=== PATIENT | female | born 1950 | race American Indian/Alaskan Native ===

== ENCOUNTER 2017-03-09 13:40 | Outpatient (CLI) | payer MEDICARE ==
--- NOTE | 2017-03-11 14:28 | Vascular Lab Report ---
Left Lower Extremity Venous Duplex Study: Reason for Exam: Pain of the left lower extremity. Comments on the Right: A limited duplex study was done of the proximal veins of the right lower extremity. All veins visualized are freely compressible without evidence of internal echogenicity. Flow is spontaneous and phasic throughout. No evidence of acute or chronic thrombus is seen in any of the vessels visualized. Comments on the Left: All veins visualized are freely compressible without evidence of internal echogenicity. Flow is spontaneous and phasic throughout. No evidence of acute or chronic thrombus is seen in any of the vessels visualized. There are soft tissue change in the left knee area most compatible with an effusion or Elaine's cyst. Impression: No evidence of acute or chronic deep venous thrombosis in the left lower extremity.
== END 2017-03-09 13:41 | disposition home or self-care (01) ==
LOC: VAS 13:40
PROVIDERS: ATTEND Internal Medicine Hematology & Oncology
DX: M79.662 Pain in left lower leg (principal); M79.89 Other specified soft tissue disorders

== ENCOUNTER 2017-06-23 09:09 | Outpatient (CLI) | payer MEDICARE ==
[2017-06-23 10:55] LABS: Blood Urea Nitrogen 16 mg/dL (7-17)
[2017-06-23] MEDS ORDERED: FLUSH HEPARIN IV ONE (14:29)
--- NOTE | 2017-06-23 16:11 | Cat Scan Report ---
FINAL REPORT EXAM: CT ANGIO CHEST HISTORY: MALIGNANT NEOPLASM OF PANCREAS UNSPECIFIED TECHNIQUE: CTA of the chest was performed after the administration of intravenous contrast. Reconstructions were included in the coronal and sagittal planes. Rotating MIPS were included. PRIORS: CT of the chest from 10/11/2016. FINDINGS: Pulmonary arteries and thoracic aorta: The study is adequate for diagnostic purposes. No central or segmental pulmonary embolism. The thoracic aorta is normal in caliber. Unchanged atherosclerotic calculi in the thoracic aorta. A right chest port is present with the tip lying in the right atrium. Lungs and airways: No pleural effusion. The airways are patent. No bronchiectasis. The previously seen right upper lobe mass appears decreased in density is since the prior study. The mass measures approximately 5.5 x 3.4 centimeters, previously 5.8 x 4.9 centimeters. The other previously seen bilateral pulmonary nodules are grossly stable in size. There is a new left apical pulmonary nodule measuring 5 millimeters on series 2, image 20. New streaky and patchy opacities are seen in the left lung apex. No other new pulmonary nodules are seen. Mediastinum, heart, pericardium: No mediastinal lymphadenopathy. No cardiac chamber enlargement. No pericardial effusion. Unchanged coronary artery calculi. Thoracic inlet, chest wall, axilla: No chest wall masses. 4 millimeter hypoattenuating left thyroid nodule is again seen. No axillary lymphadenopathy. Upper abdomen: Extensive hypoattenuating lesions throughout the liver have decreased in number since the prior study. Seven remaining lesions are seen. Previously there were innumerable lesions scattered throughout the liver. The largest lesion near the hepatic dome measures 1.5 centimeters, previously 2.0 centimeters. There is new intrahepatic biliary ductal dilation. Calcified splenic granulomas are seen. Severe dilation of the pancreatic duct is again seen. Hypoattenuating lesion in the pancreatic body is similar in appearance and size measuring approximately 2.6 centimeters (remeasured on the prior). Possible 2nd pancreatic tail lesion is measuring 2 centimeters. Bones: Degenerative changes are seen throughout the spine. IMPRESSION: 1. No central or segmental pulmonary embolism. 2. Decreased size and density of the right upper lobe mass. The additional bilateral pulmonary nodules are unchanged in size. There is one new 5 millimeter left upper lobe pulmonary nodule. 3. New streaky and patchy opacities in the left lung apex may be related to pneumonia versus post radiation change. 4. Decreased size and number of the hepatic metastases. 5. New intrahepatic biliary ductal dilation. 6. Unchanged pancreatic lesions with severe dilation of the pancreatic duct.
== END 2017-06-23 09:10 | disposition home or self-care (01) ==
LOC: CT 09:09
PROVIDERS: ATTEND Internal Medicine Hematology & Oncology
DX: C78.7 Secondary malignant neoplasm of liver and intrahepatic bile duct (principal); C25.9 Malignant neoplasm of pancreas, unspecified; R91.8 Other nonspecific abnormal finding of lung field; K86.89 Other specified diseases of pancreas; M47.894 Other spondylosis, thoracic region
CPT/HCPCS: 36415; 71275; 82565; 84520; J1642; Q9967

== ENCOUNTER 2017-07-25 13:15 | Outpatient (CLI) | payer MEDICARE | END 2017-07-25 13:16 | disposition home or self-care (01) | LOC: LABHHL 13:15 | DX: C22.7 Other specified carcinomas of liver (principal) | CPT/HCPCS: 88341; 88342 ==